=== PATIENT | male | born 1985 | race Caucasian/White ===

== ENCOUNTER 2016-10-01 10:57 | Emergency (ER) | payer OTHER | END 2016-10-01 16:24 | disposition home or self-care (01) | LOC: D.ER 10:57 | DX: M67.471 Ganglion, right ankle and foot (principal); M79.671 Pain in right foot ==

== ENCOUNTER 2017-03-22 08:56 | Emergency (ER) | payer OTHER | END 2017-03-22 09:15 | disposition home or self-care (01) | LOC: D.ER 08:56 | DX: J02.0 Streptococcal pharyngitis (principal) ==